=== PATIENT | male | born 1990 | race Caucasian/White ===

== ENCOUNTER 2018-11-15 14:27 | Emergency (ER) | payer OTHER ==
[2018-11-15 14:39] VITALS: BP 120/78
[2018-11-15] MEDS ORDERED: IBUPROFEN 800 MG TABLET PO STA (14:48)
[2018-11-15] MEDS ORDERED: CYCLOBENZAPRINE 10 MG TABLET PO STA (14:49)
--- NOTE | 2018-11-15 15:08 | ED Physician Documentation ---
History of Present Illness - Stated complaint Stated Complaint: NECK/ BACK PX - Chief complaint Chief Complaint: Back Pain - History obtained from History obtained from: Patient, Friend - History of Present Illness Timing: Today Pain level max: 6 Pain level now: 5 - Additonal information Additional information: 28 year old male states he was stretching this am and now has pain near the left scapula. worse with movement and better with rest. No numbness or tingling. Review of Systems Constitutional: denies: Fever Neurologic: denies: Focal weakness, Numbness PD PAST MEDICAL HISTORY - Past Medical History Cardiovascular: None Respiratory: None Neuro: None Endocrine/Autoimmune: None GI: None : None HEENT: None Psych: None Musculoskeletal: None Derm: None - Past Surgical History Past Surgical History: No - Present Medications Home Medications: Ambulatory Orders Medication Instructions Recorded Confirmed Cyclobenzaprine [Flexeril] 10 mg PO TID PRN #20 tablet 11/15/18 Ibuprofen [Motrin] 800 mg PO Q8H PRN #30 tablet 11/15/18 - Allergies Allergies/Adverse Reactions: Allergies Allergy/AdvReac Type Severity Reaction Status Date / Time No Known Drug Allergies Allergy Verified 11/15/18 14:39 - Social History Does the pt smoke?: No Smoking Status: Never smoker Does the pt have substance abuse?: No - Immunizations Immunizations are current?: Yes PD ED PE NORMAL - Vitals Vital signs reviewed: Yes - General General: Alert and oriented X 3, No acute distress - HEENT HEENT: Moist mucous membranes - Neck Neck: Supple, no meningeal sign, No bony TTP - Cardiac Cardiac: RRR, No gallop - Respiratory Respiratory: No respiratory distress, Clear bilaterally - Back Back: No spinal TTP - Derm Derm: Warm and dry - Extremities Extremities: Other (TTP over the L rhomboid. NVI. no bony tenderness.) - Neuro Neuro: Alert and oriented X 3, No motor deficit, No sensory deficit Results - Vitals Vitals: Oxygen O2 Source Room air PD MEDICAL DECISION MAKING - ED course Complexity details: considered differential, d/w patient ED course: L rhomboid strain. No bony issues. no pneumothorax. Patient counseled regarding signs and symptoms for which I believe and urgent re-evaluation would be necessary. Patient with good understanding of and agreement to plan and is comfortable going home at this time This document was made in part using voice recognition software. While efforts are made to proofread this document, sound alike and grammatical errors may occur. Departure - Departure Disposition: 01 Home, Self Care Clinical Impression: Rhomboid muscle strain Qualifiers: Encounter type: initial encounter Qualified Code(s): S29.012A - Strain of muscle and tendon of back wall of thorax, initial encounter Condition: Good Instructions: ED Spasm Back No Trauma Follow-Up: Curly Mott MD [Primary Care Provider] - Prescriptions: Cyclobenzaprine [Flexeril] 10 mg PO TID PRN #20 tablet PRN Reason: Spasms Ibuprofen [Motrin] 800 mg PO Q8H PRN #30 tablet PRN Reason: PAIN &/OR FEVER Comments: Return if you worsen. This should improve over the next few days. Do not drive or operate heavy machinery while taking the Flexeril as this may make you drowsy. Continue to gently stretch the area. Discharge Date/Time: 11/15/18 15:13
== END 2018-11-15 15:13 | disposition home or self-care (01) ==
LOC: ED 14:27
DX: S29.012A Strain of muscle and tendon of back wall of thorax, initial encounter (principal); X58.XXXA Exposure to other specified factors, initial encounter
CPT/HCPCS: 99283; A9270